=== PATIENT | male | born 1970 | race Caucasian/White ===

== ENCOUNTER 2020-08-30 21:45 | Emergency (ER) | payer BC ==
[~2020-08-30] VITALS: Ht 185.4 cm; Wt 106.6 kg
[2020-08-30 23:20] VITALS: BP 129/91
== END 2020-08-30 23:20 | disposition home or self-care (01) ==
LOC: M.ERS 21:45
DX: S61.211A Laceration without foreign body of left index finger without damage to nail, initial encounter (principal); W26.0XXA Contact with knife, initial encounter; Y93.89 Activity, other specified; Y92.89 Other specified places as the place of occurrence of the external cause; Y99.8 Other external cause status